=== PATIENT | female | born 2000 | race Caucasian/White ===

== ENCOUNTER 2022-05-13 12:28 | Emergency (ER) | payer BC ==
[2022-05-13 13:23] VITALS: BP 116/88; PULSE 86; TEMP 98.3
[2022-05-13 13:27] LABS: HEMOGLOBIN 13.6 G/dL (10.7-15.3); MCH 30.9 pg (25.7-33.7); MCHC 35.7 g/dl (32.0-36.0); MEAN CELL VOLUME 86.6 fl (80-96); MEAN PLT VOLUME 8.6 fl (7.5-11.1); PLATELET COUNT 242.6 10^3/uL (134-434); RBC 4.39 10^6/uL (3.60-5.2); RDW 13.6 % (11.6-15.6); WHITE BLOOD COUNT 5.1 10^3/uL (4.0-10.8)
[2022-05-13 13:38] LABS: BILIRUBIN,TOTAL 0.6 mg/dl (0.2-1); CALCIUM 9.5 mg/dl (8.5-10); CREATININE 0.8 mg/dl (0.55-1.3); TOT PROT 7.1 g/dl (6.4-8.2)
[2022-05-13] MEDS ORDERED: ACETAMINOPHEN 325 MG TABLET (FP) PO ONE (13:42)
[2022-05-13] MEDS ORDERED: IBUPROFEN 400 MG TABLET (FP) PO ONE ×2 (13:42→13:56)
[2022-05-13] MEDS ORDERED: ACETAMINOPHEN 325 MG TABLET (FP) ONE (13:56)
== END 2022-05-13 14:57 | disposition home or self-care (01) ==
LOC: FER 12:28
DX: R07.89 Other chest pain (principal)
CPT/HCPCS: 36415; 71045-TC-FY; 80053; 84703; 85027; 85379; 93005; 99285-25